=== PATIENT | male | born 1975 | race Hispanic/Latino ===

== ENCOUNTER 2019-10-06 08:01 | Outpatient (CLI) | payer BC, SELFPAY ==
--- NOTE | ~2019-10-06 | US_ITS ---
EXAMINATION: US right upper quadrant EXAM DATE: 10/06/2019 09:11 INDICATION: Right upper quadrant pain. TECHNIQUE: Multiple grayscale and Doppler images of the abdomen right upper quadrant were obtained (b y a technologist who performed the scan) and subsequently reviewed. There is no prior study for ismael dumont. FINDINGS: The pancreatic head and body are normal in appearance. The pancreatic tail is not visualized. The l iver has normal echogenicity and contour. There are no focal liver lesions identified. There is no evidence of intrahepatic biliary duct dilation. Portal venous flow was seen in the hepatopedal, nor mal direction and has normal Doppler waveform. No right-sided hydronephrosis. Common bile duct measures 5 mm, which is normal. The gallbladder wall is normal in thickness, with ex pected amount of distention. No sonographic evidence of pericholecystic fluid. There is no cholelit hiases. IMPRESSION: 1. Unremarkable abdominal ultrasound exam. Reviewed, dictated and finalized at location B. R SUPERVISOR
== END 2019-10-06 08:02 | disposition home or self-care (01) ==
LOC: ANHIMG 08:05
PROVIDERS: PCP Registered Nurse; Visit Provider Registered Nurse
DX: R10.11 Right upper quadrant pain (principal)
CPT/HCPCS: 76705

== ENCOUNTER → 2022-04-07 07:55 | Outpatient (CLI) | payer BC, SELFPAY ==
--- NOTE | ~2022-04-07 | US_ITS ---
US abdomen limited INDICATION: Elevated liver enzymes PROCEDURE: Realtime right upper abdominal ultrasound. COMPARISON: No prior studies for comparison. FINDINGS: The pancreas is normal without focal mass or pancreatic ductal dilation. Liver echotexture is increased, consistent with fatty infiltration. There is a small hypoechoic mass of the right hepa tic lobe measuring 11 x 8 x 6 mm There is normal directional flow in the portal vein. The gallbladder is normal without stones, gallbladder wall thickening or pericholecystic fluid. Comm on bile duct measures mm. No sonographic Valdez's sign. IMPRESSION: 1: Hepatic steatosis. 2: 11 mm hypoechoic mass right hepatic lobe which may represent focal fatty sparing. Recommend follo w-up ultrasound in 6 months to assess stability. Reviewed, dictated and finalized at location B. IMPRESSION: 1: Hepatic steatosis. 2: 11 mm hypoechoic mass right hepatic lobe which may represent focal fatty sp aring. Recommend follow-up ultrasound in 6 months to assess stability.
== END ==
PROVIDERS: PCP Physician Assistant; Visit Provider Physician Assistant
DX: R74.01 Elevation of levels of liver transaminase levels (principal); K76.0 Fatty (change of) liver, not elsewhere classified
CPT/HCPCS: 76705